=== PATIENT | male | born 1955 | race African-American/Black ===

== ENCOUNTER 2017-02-03 13:32 | Emergency (ER) | payer MEDICAID ==
[~2017-02-03] VITALS: Ht 182.9 cm; Wt 100.0 kg
[2017-02-03] MEDS ORDERED: ASPIRIN 325MG TABLET PO ONE (16:00)
[2017-02-03 16:24] LABS: CHLORIDE 106 mEq/L (98-107)
[2017-02-03 16:25] LABS: BASOPHILS % 0.8 % (0.0-2.0); EOSINOPHILS % 2.7 % (0.0-5.0); HEMATOCRIT. 35.1 % (42.0-52.0); HEMOGLOBIN. 11.8 g/dL (14.0-18.0); LYMPHOCYTES % 29.2 % (20.0-50.0); MEAN CORPUSCULAR HEMOGLOBIN 26.2 pg (28.0-32.0); MEAN CORPUSCULAR VOLUME 78.1 fL (80.0-94.0); MEAN PLATELET VOLUME 7.7 fl (7.4-10.4); MONOCYTES % 8.2 % (2.0-8.0); NEUTROPHILS % 59.1 % (40.0-76.0); PLATELET 173 x1000/uL (130-400); RED CELL DISTRIBUTION WIDTH 16.2 % (11.6-14.6)
[2017-02-03 16:26] LABS: CARBON DIOXIDE 27 mEq/L (21-32); PROTHROMBIN TIME 10.3 sec (9.4-11.6)
[2017-02-03 16:34] LABS: TROPONIN I < 0.02 ng/mL (0.00-0.04)
[2017-02-03 17:51] VITALS: BP 118/73
== END 2017-02-03 17:53 | disposition home or self-care (01) ==
LOC: ER 13:32
DX: R07.9 Chest pain, unspecified (principal); E11.9 Type 2 diabetes mellitus without complications; I10 Essential (primary) hypertension; Z87.891 Personal history of nicotine dependence
CPT/HCPCS: 36415; 71010; 80053; 84484; 85025; 85610; 93005; 99285; Z7610

== ENCOUNTER 2022-11-22 15:51 | Emergency (ER) | payer MEDICARE, MEDICAID ==
[~2022-11-22] VITALS: Ht 182.9 cm; Wt 118.0 kg
[2022-11-22] MEDS ORDERED: SODIUM CHLORIDE 0.9% 1,000 ML IV ONE (16:30)
[2022-11-22 17:06] LABS: BASOPHILS % 1.2 % (0.0-2.0); EOSINOPHILS % 0.4 % (0.0-5.0); HEMATOCRIT. 41.5 % (42.0-52.0); HEMOGLOBIN. 13.9 g/dL (14.0-18.0); LYMPHOCYTES % 10.8 % (20.0-50.0); MEAN CORPUSCULAR HEMOGLOBIN 27.8 pg (28.0-32.0); MEAN CORPUSCULAR VOLUME 83.2 fL (80.0-94.0); MONOCYTES % 5.5 % (2.0-8.0); NEUTROPHILS % 82.1 % (40.0-76.0); PLATELET 171 x1000/uL (130-400); RED BLOOD CELL COUNT 4.99 mill/uL (4.7-6.1); RED CELL DISTRIBUTION WIDTH 16.1 % (11.6-14.6)
[2022-11-22 17:18] LABS: CHLORIDE 108 mEq/L (98-107)
[2022-11-22 19:10] VITALS: BP 132/81
== END 2022-11-22 19:14 | disposition home or self-care (01) ==
LOC: ER 15:51
DX: E11.649 Type 2 diabetes mellitus with hypoglycemia without coma (principal); I49.9 Cardiac arrhythmia, unspecified
CPT/HCPCS: 36415; 71045; 80053; 82962; 83880; 84484; 85025; 93005; 96360; 99285; J7030